=== PATIENT | female | born 2005 | race Two or more races ===

== ENCOUNTER 2023-10-10 08:42 | Emergency (ER) | payer OTHER, MEDICAID ==
[~2023-10-10] VITALS: Ht 162.6 cm; Wt 46.3 kg
[2023-10-10 09:08] VITALS: BP 123/75; PULSE 95; RESP 16; TEMP 99.1; O2SAT 100
[2023-10-10] MEDS ORDERED: TRIA0.02 TOP (09:35)
== END 2023-10-10 09:47 | disposition home or self-care (01) ==
LOC: ER 08:42
DX: S70.12XA Contusion of left thigh, initial encounter (principal); L20.9 Atopic dermatitis, unspecified; W22.8XXA Striking against or struck by other objects, initial encounter; Y93.89 Activity, other specified; Y92.89 Other specified places as the place of occurrence of the external cause; Y99.8 Other external cause status